=== PATIENT | male | born 1945 | race Caucasian/White ===

== ENCOUNTER 2018-06-14 10:50 | Outpatient (REF) | payer MEDICARE, BC, SELFPAY ==
[2018-06-14 12:43] LABS: Cholesterol 150 mg/dL (50-200); HDL Cholesterol 55 mg/dL (40-60); LDL CHOLESTEROL 74 mg/dL (<100); Triglyceride 149 mg/dL (30-150)
[2018-06-14 14:10] LABS: Hemoglobin A1C 7.6 % (4.5-6.2)
== END 2018-06-14 11:10 ==
LOC: NCHCN 10:50
PROVIDERS: PCP Nurse Practitioner Family; Visit Provider Nurse Practitioner
DX: I10 Essential (primary) hypertension (principal); E78.5 Hyperlipidemia, unspecified; R73.09 Other abnormal glucose
CPT/HCPCS: 80061; 83721; 83036

== ENCOUNTER → 2018-06-22 09:34 | Outpatient (BNVA) | payer MEDICARE, BC, SELFPAY | PROVIDERS: PCP Nurse Practitioner Family; Referring Provider Nurse Practitioner Family; Visit Provider Orthopaedic Surgery | DX: M75.91 Shoulder lesion, unspecified, right shoulder (principal) | CPT/HCPCS: 20610; 99213; 99214; J1040 ==

== ENCOUNTER → 2018-07-27 09:20 | Outpatient (BNVA) | payer MEDICARE, BC, SELFPAY | PROVIDERS: PCP Nurse Practitioner Family; Referring Provider Nurse Practitioner Family; Visit Provider Orthopaedic Surgery | DX: M75.82 Other shoulder lesions, left shoulder (principal) | CPT/HCPCS: 99213; 99241 ==

== ENCOUNTER 2018-08-02 09:35 | Outpatient (REF) | payer MEDICARE, BC, SELFPAY ==
[2018-08-02 13:15] LABS: COMMENT (LAB VIEW ONLY) 68.41 mg/dL; Microalb ug/mg Crea 36.4 ug/mg Cr
== END 2018-08-02 09:55 ==
LOC: NCHCN 09:35
PROVIDERS: PCP Nurse Practitioner Family; Visit Provider Nurse Practitioner
DX: E11.9 Type 2 diabetes mellitus without complications (principal)
CPT/HCPCS: 82043; 82570

== ENCOUNTER 2018-08-10 13:45 | Outpatient (REF) | payer MEDICARE, BC, SELFPAY ==
[2018-08-10 19:40] LABS: Amylase 35 U/L (25-115); Anion Gap 9.4 mmol/L (3-11); BUN 37 mg/dL (7-18); CO2 28.6 mmol/L (21.0-32.0); CREATININE 1.58 mg/dL (0.70-1.30); Calcium 9.5 mg/dL (8.5-10.1); Chloride 99 mmol/L (98-107); Estimated GFR 43.45 (mL/min/1.73m2); Glucose 174 mg/dL (70-100); Lipase 191 U/L (73-393); Potassium 3.9 mmol/L (3.5-5.1); Sodium 137 mmol/L (136-145)
== END 2018-08-10 14:05 ==
LOC: NCHCN 13:45
PROVIDERS: PCP Nurse Practitioner Family; Visit Provider Nurse Practitioner
DX: E11.65 Type 2 diabetes mellitus with hyperglycemia (principal); R11.2 Nausea with vomiting, unspecified; Z79.4 Long term (current) use of insulin
CPT/HCPCS: 80048; 83690; 82150; 84443; 84681

== ENCOUNTER 2018-09-05 12:59 | Outpatient (REF) | payer MEDICARE, BC, SELFPAY ==
[2018-09-06 17:13] LABS: C-Peptide 2.2 ng/mL (1.1 - 4.4)
== END 2018-09-05 13:19 ==
LOC: LBN 12:59
PROVIDERS: PCP Nurse Practitioner; Visit Provider Nurse Practitioner
DX: E11.9 Type 2 diabetes mellitus without complications (principal)
CPT/HCPCS: 84681

== ENCOUNTER 2019-02-16 09:50 | Outpatient (CLI) | payer MEDICARE, BC, SELFPAY | END 2019-02-16 10:10 | PROVIDERS: PCP Nurse Practitioner; Visit Provider Internal Medicine Cardiovascular Disease | DX: I48.0 Paroxysmal atrial fibrillation (principal); I10 Essential (primary) hypertension; E11.9 Type 2 diabetes mellitus without complications; Z79.4 Long term (current) use of insulin | CPT/HCPCS: 99213 ==

== ENCOUNTER → 2019-03-15 09:25 | Outpatient (BNVA) | payer MEDICARE, BC, SELFPAY | PROVIDERS: PCP Nurse Practitioner; Referring Provider Nurse Practitioner; Visit Provider Orthopaedic Surgery | DX: M75.81 Other shoulder lesions, right shoulder (principal); Z98.890 Other specified postprocedural states; E11.9 Type 2 diabetes mellitus without complications; Z79.4 Long term (current) use of insulin | CPT/HCPCS: 20610; 99213; J1040 ==

== ENCOUNTER 2019-04-25 14:08 | Outpatient (REF) | payer MEDICARE, BC, SELFPAY ==
[2019-04-25 15:19] LABS: Vitamin B12 600 pg/mL (193-986)
== END 2019-04-25 14:28 ==
LOC: NCHCN 14:08
PROVIDERS: PCP Nurse Practitioner; Visit Provider Nurse Practitioner
DX: E53.8 Deficiency of other specified B group vitamins (principal)
CPT/HCPCS: 82607

== ENCOUNTER 2020-01-01 16:14 | Outpatient (REF) | payer MEDICARE, BC, SELFPAY ==
[2020-01-01 16:31] LABS: Hemoglobin A1C 6.7 % (3.8-5.6)
[2020-01-01 16:39] LABS: ALT 47 U/L (16-63); AST 35 U/L (15-37); Albumin 3.8 g/dL (3.4-5.0); Alkaline Phosphatase 87 U/L (46-116); Anion Gap 8.9 mmol/L (3-11); BUN 26 mg/dL (7-18); Bilirubin, Total 0.6 mg/dL (0.2-1.0); CO2 28.1 mmol/L (21.0-32.0); CREATININE 1.37 mg/dL (0.70-1.30); Calcium 9.1 mg/dL (8.5-10.1); Calculated LDL 90 mg/dL (<100); Chloride 102 mmol/L (98-107); Cholesterol 176 mg/dL (<200); Estimated GFR 50.93 (mL/min/1.73m2); Glucose 176 mg/dL (74-106); HDL Cholesterol 61 mg/dL (40-60); Sodium 139 mmol/L (136-145); Total Protein 7.1 g/dL (6.4-8.2); Triglyceride 125 mg/dL (<150)
[2020-01-02 11:03] LABS: INR 2.5 (0.9-1.1)
== END 2020-01-01 16:34 ==
LOC: NCHCN 16:14
PROVIDERS: PCP Nurse Practitioner; Visit Provider Nurse Practitioner
DX: E11.9 Type 2 diabetes mellitus without complications (principal); I10 Essential (primary) hypertension; E78.5 Hyperlipidemia, unspecified; I48.91 Unspecified atrial fibrillation; Z79.01 Long term (current) use of anticoagulants
CPT/HCPCS: 80053; 80061; 83036; 85610

== ENCOUNTER → 2020-01-29 11:11 | Outpatient (BNVA) | payer MEDICARE, BC, SELFPAY | PROVIDERS: PCP Nurse Practitioner; Referring Provider Nurse Practitioner; Visit Provider Internal Medicine Cardiovascular Disease | DX: I48.0 Paroxysmal atrial fibrillation (principal); I10 Essential (primary) hypertension | CPT/HCPCS: 99213 ==

== ENCOUNTER 2020-08-28 15:14 | Outpatient (REF) | payer MEDICARE, BC, SELFPAY ==
[2020-08-28 14:43] LABS: COMMENT (LAB VIEW ONLY) 124.96 mg/dL; Microalb ug/mg Crea 9.6 ug/mg Cr
== END 2020-08-28 15:15 | disposition home or self-care (01) ==
LOC: NCHCN 15:14
PROVIDERS: PCP Nurse Practitioner; Visit Provider Internal Medicine
DX: E11.9 Type 2 diabetes mellitus without complications (principal)
CPT/HCPCS: 82043; 82570

== ENCOUNTER → 2021-01-31 12:25 | Outpatient (BNVA) | payer MEDICARE, BC, SELFPAY | PROVIDERS: PCP Nurse Practitioner; Referring Provider Nurse Practitioner; Visit Provider Internal Medicine Cardiovascular Disease | DX: I48.0 Paroxysmal atrial fibrillation (principal); I10 Essential (primary) hypertension; Z79.01 Long term (current) use of anticoagulants | CPT/HCPCS: 99213 ==

== ENCOUNTER 2021-02-17 11:35 | Outpatient (REF) | payer MEDICARE, BC, SELFPAY ==
[2021-02-17 13:58] LABS: ALT 69 U/L (16-63); AST 37 U/L (15-37); Albumin 3.7 g/dL (3.4-5.0); Alkaline Phosphatase 88 U/L (46-116); Anion Gap 8.4 mmol/L (3-11); BUN 26 mg/dL (7-18); Bilirubin, Total 0.5 mg/dL (0.2-1.0); CO2 27.6 mmol/L (21.0-32.0); CREATININE 1.3 mg/dL (0.70-1.30); Calculated LDL 60 mg/dL (<100); Chloride 103 mmol/L (98-107); Cholesterol 123 mg/dL (<200); Estimated GFR 53.96 (mL/min/1.73m2); Glucose 242 mg/dL (74-106); HDL Cholesterol 43 mg/dL (40-60); Potassium 4.3 mmol/L (3.5-5.1); Sodium 139 mmol/L (136-145); Total Protein 6.9 g/dL (6.4-8.2); Triglyceride 102 mg/dL (<150)
[2021-02-17 14:06] LABS: Hemoglobin A1C 7.8 % (<5.7)
== END 2021-02-17 11:36 | disposition home or self-care (01) ==
LOC: NCHCN 11:35
PROVIDERS: PCP Nurse Practitioner; Visit Provider Nurse Practitioner
DX: E11.9 Type 2 diabetes mellitus without complications (principal); I10 Essential (primary) hypertension; E78.5 Hyperlipidemia, unspecified
CPT/HCPCS: 80053; 80061; 83036

== ENCOUNTER 2021-05-15 01:56 | Outpatient (CLI) | payer MEDICARE, BC, SELFPAY ==
--- NOTE | 2021-05-15 | DI.CT_ITS ---
Exam(s) CT LOWER EXTREMITY LT WO EXAM: CT LOWER EXTREMITY LT WO CLINICAL HISTORY: PAIN IN TALAR/NAVICULAR JNT,ANT ANKLE. TECHNIQUE: Imaging Protocol: Axial computed tomography images with coronal and sagittal reformatted images were created and reviewed. CONTRAST MATERIAL: Intravenous: None COMPARISON: No prior relevant radiologic exams were available for comparison FINDINGS: OSSEOUS: There are no fractures. No significant osseous lesions. Talar dome unremarkable. No osseous tarsal coalition evident. ANKLE JOINT: The tibiotalar joint appears unremarkable. Talar dome appears unremarkable. Tibial susana fond appears unremarkable. No degenerative subarticular cysts. No evidence of osteochondral defect. No loose intra-articular body. No obvious joint effusion. No anterior bony excrescence (to sugges t obvious impingement at this level). There is no evidence of os trigonum nor prominent Stieda process of the talus. SINUS TARSI: Normal fat therein. No evidence of sinus tarsi ganglion cyst. SUBTALAR JOINT: Unremarkable. No obvious degenerative changes sustentacular talus appears unremarkab le. There is no evidence of osseous tarsal coalition. CALCANEOCUBOID JOINT: No significant findings TARSOMETATARSAL JOINTS: No significant findings IMPRESSION: 1. 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 2. No other significant osseous findings. RADIATION DOSE DELIVERED: 287.9mGy.cm Total DLP DATA REPOSITORY: All CT scans at this facility are submitted to the National Radiology Data Registry (NRDR) Dose Index Registry (DIR) with the [employer] (A[employer]). RADIATION OPTIMIZATION: All CT scans at this facility use at least one of these dose optimization te chniques: automated exposure control; mA and/or kV adjustment per patient size (includes targeted exa ms where dose is matched to clinical indication); or iterative reconstruction.
== END 2021-05-15 02:16 ==
PROVIDERS: PCP Nurse Practitioner; Visit Provider Podiatrist
DX: M19.072 Primary osteoarthritis, left ankle and foot (principal)
CPT/HCPCS: 73700

== ENCOUNTER 2021-10-03 17:39 | Outpatient (REF) | payer MEDICARE, BC, SELFPAY ==
[2021-10-03 15:05] LABS: INR 2.3 (0.9-1.1); Prothrombin Time 22.2 sec (9.3-11.0)
== END 2021-10-03 17:40 | disposition home or self-care (01) ==
LOC: NCHCN 17:39
PROVIDERS: PCP Nurse Practitioner; Visit Provider Nurse Practitioner Family
DX: Z76.89 Persons encountering health services in other specified circumstances (principal); I48.0 Paroxysmal atrial fibrillation
CPT/HCPCS: 85610

== ENCOUNTER 2022-02-02 08:30 | Outpatient (CLI) | payer MEDICARE, BC, SELFPAY ==
--- NOTE | 2022-02-02 08:30 | RT.EKG_ITS ---
APPROVED REPORT Exam: Resting ECG Reason for Exam: PAF Patient Location: O HR:71 bpm ECG Measurements Heart Rate 71 AXIS [place] 208 P 63 QRSd 111 QRS 70 QT 370 T 25 QTc 403 Conclusion Sinus rhythm...normal P axis, V-rate 50- 99 Normal Electrocardiogram
== END 2022-02-02 08:31 | disposition home or self-care (01) ==
LOC: DI.CARD 08:31
PROVIDERS: PCP Nurse Practitioner; Visit Provider Internal Medicine Cardiovascular Disease
DX: I48.0 Paroxysmal atrial fibrillation (principal)
CPT/HCPCS: 93010

== ENCOUNTER → 2022-02-02 14:00 | Outpatient (BNVA) | payer MEDICARE, BC, SELFPAY | PROVIDERS: PCP Nurse Practitioner; Visit Provider Internal Medicine Cardiovascular Disease | DX: I48.0 Paroxysmal atrial fibrillation (principal); I10 Essential (primary) hypertension | CPT/HCPCS: 93005; 99213 ==

== ENCOUNTER 2022-02-16 16:58 | Outpatient (REF) | payer MEDICARE, BC, SELFPAY ==
[2022-02-16 17:19] LABS: COMMENT (LAB VIEW ONLY) 167.34 mg/dL; PROTEIN 19.8 mg/dL; Prot/Crea Ur Ratio 0.11
[2022-02-16 17:23] LABS: COMMENT (LAB VIEW ONLY) 168.22 mg/dL; Microalb ug/mg Crea 5.9 ug/mg Cr
== END 2022-02-16 16:59 | disposition home or self-care (01) ==
LOC: NCHCN 16:58
PROVIDERS: PCP Nurse Practitioner; Visit Provider Nurse Practitioner Family
DX: I12.9 Hypertensive chronic kidney disease with stage 1 through stage 4 chronic kidney disease, or unspecified chronic kidney disease (principal); N18.9 Chronic kidney disease, unspecified; E11.22 Type 2 diabetes mellitus with diabetic chronic kidney disease; I48.91 Unspecified atrial fibrillation; E53.8 Deficiency of other specified B group vitamins; E55.9 Vitamin D deficiency, unspecified; E78.5 Hyperlipidemia, unspecified
CPT/HCPCS: 82043; 82565; 82570; 84156

== ENCOUNTER 2022-03-18 15:06 | Outpatient (REF) | payer MEDICARE, BC, SELFPAY ==
[2022-03-18 16:10] LABS: HCT 42.9 % (40.0-50.0); HGB 15.2 g/dL (13.5-17.5); MCH 34.2 pg (27.0-33.0); MCHC 35.4 % (32.0-36.0); MCV 96 fL (80-95); MPV 11.3 fL (8.0-11.0); Platelet Count 235 10^3/uL (130-400); RBC 4.45 10^6/uL (4.36-5.78); RDW-SD 42.7 fL; WBC 9.53 10^3/uL (4.4-10.8)
[2022-03-18 16:31] LABS: INR 2.8 (0.9-1.1); Prothrombin Time 26.3 sec (9.3-11.0)
[2022-03-18 17:23] LABS: ALT 55 U/L (16-63); AST 39 U/L (15-37); Albumin 3.7 g/dL (3.4-5.0); Alkaline Phosphatase 96 U/L (46-116); Anion Gap 12.4 mmol/L (3-11); BUN 22 mg/dL (7-18); Bilirubin, Total 0.6 mg/dL (0.2-1.0); CO2 26.6 mmol/L (21.0-32.0); CREATININE 1.2 mg/dL (0.70-1.30); Calcium 9.3 mg/dL (8.5-10.1); Chloride 100 mmol/L (98-107); Estimated GFR 59.02 (mL/min/1.73m2); Glucose 134 mg/dL (74-106); Potassium 3.8 mmol/L (3.5-5.1); Sodium 139 mmol/L (136-145); Total Protein 7.3 g/dL (6.4-8.2); Vitamin B12 586 pg/mL (193-986)
[2022-03-19 05:28] LABS: Vitamin D 25 Total 33.2 ng/mL (30-100)
== END 2022-03-18 15:07 | disposition home or self-care (01) ==
LOC: NCHCN 15:06
PROVIDERS: PCP Nurse Practitioner; Visit Provider Nurse Practitioner Family
DX: E11.9 Type 2 diabetes mellitus without complications (principal); N18.30 Chronic kidney disease, stage 3 unspecified; E53.8 Deficiency of other specified B group vitamins; E55.9 Vitamin D deficiency, unspecified; E78.5 Hyperlipidemia, unspecified; I10 Essential (primary) hypertension; I48.91 Unspecified atrial fibrillation; Z79.01 Long term (current) use of anticoagulants
CPT/HCPCS: 80053; 82306; 85027; 82607; 85610

== ENCOUNTER 2022-09-18 10:29 | Outpatient (REF) | payer MEDICARE, BC, SELFPAY ==
--- NOTE | 2022-09-18 09:30 | LIPBX_PTH ---
PATIENT: Allan Lucas LOC: [facility] U#:[id number] AGE/SX: 76/M ROOM: RE09/18/[address]: POOJA Chávez : 1945 BED: DIS: 09/18/2022 SPEC #: [id number] RECD: 09/21/22 13:00 STATUS: KRYS RETroy #: [id number] NOEMI: 09/18/22 09:[address]: Evaristo Grover DEPT: Surgical Specimen RECD BY: Tanja Mark ENTERED: 09/21/22 13:01 SP TYPE: LIPBX OTHR DR: Sanjuana Sams Tissues: 1 - LIP BIOPSY/RESECTION Procedures: GROSS AND MICRO LEVEL 4 SPECIAL STAIN 1 Comments: [id number]
== END 2022-09-18 10:30 | disposition home or self-care (01) ==
LOC: LBN 10:29
PROVIDERS: PCP Nurse Practitioner; Visit Provider Physician Assistant
DX: D18.01 Hemangioma of skin and subcutaneous tissue (principal)
CPT/HCPCS: 88305; 88312

== ENCOUNTER → 2023-02-02 10:16 | Outpatient (BNVA) | payer MEDICARE, BC, SELFPAY | PROVIDERS: PCP Nurse Practitioner; Visit Provider Internal Medicine Cardiovascular Disease | DX: Z79.01 Long term (current) use of anticoagulants (principal); I48.0 Paroxysmal atrial fibrillation; I10 Essential (primary) hypertension | CPT/HCPCS: 99214 ==

== ENCOUNTER 2023-02-17 02:39 | Outpatient (CLI) | payer MEDICARE, BC, SELFPAY ==
--- NOTE | 2023-02-17 | DI.RAD_ITS ---
Exam(s) XR HAND LT COMPLETE EXAM: XR HAND LT COMPLETE CLINICAL HISTORY: ARTHRITIS, M12.849,PERSIST PAIN,STRAIN,? ORTHO INJURY VS ARTHRITIS. TECHNIQUE: 2D digital imaging was performed of the left hand. Three views were obtained. AP, later al and oblique views were obtained. COMPARISON: No exams were available for comparison FINDINGS: BONES: No acute fracture is present. No bony destructive lesion is seen. JOINTS: No dislocation present. Mtah-ge-bpyymrfh degenerative changes are seen in the left hand sachin cterized by joint space narrowing and osteophytes. The findings are most marked at the interphalange al joints of the fingers. SOFT TISSUE: Extensive vascular calcification is present. IMPRESSION: 1. No acute fracture or dislocation. 2. Wdio-vm-xyryfoni degenerative changes of the hand. 3. Atherosclerosis. DATA REPOSITORY: RADIATION DOSE DELIVERED:
== END 2023-02-17 02:59 ==
LOC: DI 02:39
PROVIDERS: PCP Nurse Practitioner Family; Visit Provider Nurse Practitioner Family
DX: M19.042 Primary osteoarthritis, left hand
CPT/HCPCS: 73130

== ENCOUNTER 2023-06-15 18:24 | Outpatient (REF) | payer MEDICARE, BC, SELFPAY ==
[2023-06-15 17:03] LABS: HCT 43.3 % (40.0-50.0); HGB 14.7 g/dL (13.5-17.5); MCH 33.9 pg (27.0-33.0); MCHC 33.9 % (32.0-36.0); MCV 100 fL (80-95); MPV 11.3 fL (8.0-11.0); Platelet Count 243 10^3/uL (130-400); RBC 4.34 10^6/uL (4.36-5.78); RDW 12.1 % (11.8-14.1); RDW-SD 44.6 fL; WBC 9.28 10^3/uL (4.4-10.8)
[2023-06-15 17:34] LABS: Hemoglobin A1C 7.3 % (<5.7); Vitamin D 25 Total 26.6 ng/mL (30-100)
[2023-06-15 17:37] LABS: ALT 46 U/L (16-63); AST 31 U/L (15-37); Albumin 3.8 g/dL (3.4-5.0); Alkaline Phosphatase 109 U/L (46-116); Anion Gap 4.6 mmol/L (3-11); BUN 38 mg/dL (7-18); Bilirubin, Total 0.4 mg/dL (0.2-1.0); CO2 28.4 mmol/L (21.0-32.0); CREATININE 1.7 mg/dL (0.70-1.30); Calcium 9.5 mg/dL (8.5-10.1); Calculated LDL 83 mg/dL (<100); Chloride 103 mmol/L (98-107); Cholesterol 176 mg/dL (<200); Estimated GFR 41.26 (mL/min/1.73m2); Glucose 162 mg/dL (74-106); HDL Cholesterol 67 mg/dL (40-60); Potassium 4.7 mmol/L (3.5-5.1); Sodium 136 mmol/L (136-145); Total Protein 7.7 g/dL (6.4-8.2); Triglyceride 132 mg/dL (<150); Vitamin B12 622 pg/mL (193-986)
== END 2023-06-15 18:25 | disposition home or self-care (01) ==
LOC: NCHCN 18:24
PROVIDERS: PCP Nurse Practitioner Family; Visit Provider Nurse Practitioner Family
DX: I10 Essential (primary) hypertension (principal); E11.9 Type 2 diabetes mellitus without complications; E55.9 Vitamin D deficiency, unspecified
CPT/HCPCS: 80053; 80061; 82306; 85027; 82607; 83036

== ENCOUNTER 2023-11-09 07:52 | Outpatient (CLI) | payer MEDICARE, BC, SELFPAY ==
--- NOTE | 2023-11-09 07:45 | RT.EKG_ITS ---
APPROVED REPORT Exam: Resting ECG Reason for Exam: PAF Patient Location: O HR:69 bpm ECG Measurements Heart Rate 69 AXIS VT 225 P 78 QRSd 110 QRS 66 QT 384 T 32 QTc 412 Conclusion Sinus rhythm...normal P axis, V-rate 50- 99 Prolonged VT interval...VT >220, V-rate 50- 90
== END 2023-11-09 07:53 | disposition home or self-care (01) ==
LOC: DI.CARD 07:53
PROVIDERS: PCP Nurse Practitioner Family; Visit Provider Internal Medicine Cardiovascular Disease
DX: I48.0 Paroxysmal atrial fibrillation (principal)
CPT/HCPCS: 93010

== ENCOUNTER → 2023-11-09 10:23 | Outpatient (BNVA) | payer MEDICARE, BC, SELFPAY | PROVIDERS: PCP Nurse Practitioner Family; Visit Provider Internal Medicine Cardiovascular Disease | DX: I48.0 Paroxysmal atrial fibrillation (principal); I10 Essential (primary) hypertension | CPT/HCPCS: 93005; 99213 ==

== ENCOUNTER 2023-12-12 12:25 | Emergency (ER) | payer MEDICARE, BC, SELFPAY ==
[2023-12-12 12:30] VITALS: BP 186/51; PULSE 73; RESP 18; TEMP 37; O2SAT 98
--- NOTE | 2023-12-12 12:38 | ED.GENADUL_ITS ---
Discharge Plan Disposition Patient Disposition: Home Condition: Stable Discharge Details Clinical Impression: Cellulitis of forearm, right Primary Care Provider: AMADOR RAMIREZ ED Provider: Orestes Morrison Home Meds and New Rx's Prescriptions: New amoxicillin-pot clavulanate 875-125 mg tablet 1 tab PO BID Qty: 14 0RF Continued (DME) blood-glucose meter Kit See Rx Instructions .ROUTE .MEDSUPPLY Qty: 1 Rx Instructions: As directed amiodarone 200 mg tablet 200 mg PO DAILY Qty: 90 3RF enalapril maleate 10 mg tablet 10 mg PO DAILY insulin degludec [Tresiba FlexTouch U-100] 100 unit/mL (3 mL) insulin pen 20 unit subcut QHS Victoza 3-Arron 0.6 mg/0.1 mL (18 mg/3 mL) pen injector 0.6 mg subcut DAILY cyanocobalamin (vitamin B-12) 1,000 MCG/1 ML solution 1,000 mcg IJ ONCE Qty: 1 Patient Comments: 3.7.18 pt unsure of dosage, Q 3 months.HE sennosides [senna] 8.6 MG tablet 8.6 mg PO DAILY atorvastatin [Lipitor] 40 MG tablet 40 mg PO QPM chlorthalidone 25 MG tablet 25 mg PO DAILY warfarin [Coumadin] 5 MG tablet 5 mg PO DAILY metoprolol tartrate 50 MG tablet 50 mg PO BID Discharge Instructions Additional Instructions: Take the antibiotic as prescribed If not improving this week follow-up with your primary care provider If you feel more ill, have severe worsening pain or high fevers return to the emergency department for reevaluation HPI General Mode of arrival: ambulatory . Date/Time Provider Initiated Documentation: 12/12/23 12:27 . Limitations to Documentation: no limitations . Information obtained by: patient . History of Present Illness 78 year old M presents to the emergency department with the chief complaint of Right arm redness, described as mild, Quality is described as aching, and is localized to the right and upper extremity. Patient reports no radiation. Patient started experiencing this day(s) (1) and it has been constant. No relieving factors improve symptom(s), No exacerbating factors reported . Patient notes denies fever/chills. Patient did receive the following tr eatments prior to arrival, none Related Data Home Medications Medication Instructions Recorded Confirmed atorvastatin 40 mg tablet (Lipitor) 40 mg PO QPM 09/02/16 12/12/23 chlorthalidone 25 mg tablet 25 mg PO DAILY 09/02/16 12/12/23 metoprolol tartrate 50 mg tablet 50 mg PO BID 09/02/16 12/12/23 warfarin 5 mg tablet (Coumadin) 5 mg PO DAILY 09/02/16 12/12/23 cyanocobalamin (vitamin B-12) 1,000 mcg IJ ONCE #1 vial 09/29/17 12/12/23 1,000 mcg/mL injection solution sennosides 8.6 mg tablet (senna) 8.6 mg PO DAILY 11/10/17 12/12/23 blood-glucose meter #1 ea 02/16/19 12/12/23 enalapril maleate 10 mg tablet 10 mg PO DAILY 01/29/20 12/12/23 insulin degludec 100 unit/mL (3 20 unit subcut QHS 02/02/23 12/12/23 mL) subcutaneous pen (JuiceBoxJunglesiba FlexTouch U-100 insulin) liraglutide 0.6 mg/0.1 mL (18 mg/3 0.6 mg subcut DAILY 02/02/23 12/12/23 mL) subcutaneous pen injector (Victoza 3-Arron) amiodarone 200 mg tablet 200 mg PO DAILY #90 tabs 11/09/23 12/12/23 amoxicillin 875 mg-potassium 1 tab PO BID #14 tabs 12/12/23 clavulanate 125 mg tablet Previous Rx's Medication Instructions Recorded amiodarone 200 mg tablet 200 mg PO DAILY #90 tabs 11/09/23 amoxicillin 875 mg-potassium 1 tab PO BID #14 tabs 12/12/23 clavulanate 125 mg tablet Allergies Allergy/AdvReac Type Severity Reaction Status Date / Time codeine AdvReac Intermediate Other (See Verified 12/12/23 12:31 Comment) General Stated Complaint: AnimalBite MEEK: 3 Review of Systems All systems reviewed & are unremarkable except as noted in HPI and below Constitutional Constitutional: Denies chills, Denies fever(s) and Denies weakness Cardiovascular Cardiovascular: Denies chest pain and Denies dyspnea Respiratory Respiratory: Denies cough and Denies dyspnea Gastrointestinal Gastrointestinal: Denies abdominal pain, Denies nausea and Denies vomiting Musculoskeletal Musculoskeletal: Denies joint swelling Integumentary/Breasts Skin/Breast: Reports rash Neurologic Neurologic: Denies weakness Exam Const General: no acute distress Orientation: alert HENMT Head: normal to inspection Ears: external ears normal General nose exam: external nose normal Mouth: moist mucous membranes Eyes General: appearance normal, both eyes and all related structures Neck Neck: normal visual inspection Resp Effort & Inspection: normal respiratory effort and able to speak in complete sentences Cardio Rate: regular rate Neuro General: patient alert and patient oriented x3 Extrem Right upper extremity: full ROM and normal capillary refill; no edema Psych Mental Status: mental status grossly normal Course Vital Signs Vital signs: Vital Signs Temperature 37.0 C 12/12/23 12:30 Pulse 73 12/12/23 12:30 Respiratory Rate 18 12/12/23 12:30 Blood Pressure 186/51 H 12/12/23 12:30 Pulse Oximetry 98 12/12/23 12:30 Temperature 37.0 C 12/12/23 12:30 Temperature Source Temporal Artery Scan 12/12/23 12:30 Pulse 73 12/12/23 12:30 Respiratory Rate 18 12/12/23 12:30 Blood Pressure 186/51 H 12/12/23 12:30 Blood Pressure Position Sitting 12/12/23 12:30 Pulse Oximetry 98 12/12/23 12:30 Oxygen Delivery Method Room Air 12/12/23 12:30 Oxygen Flow Rate 0 12/12/23 12:30 Pain Level 3 12/12/23 12:30 Medical Decision Making 78-year-old male with a history of A-fib, hypertension, last tetanus shot was in 2019, comes in after his cat bit him on his right arm yesterday and now has redness near the area where he was bit. He states he was bit on the distal right forearm, did not fall or sustain any other injuries. States his cat is up-to-date on rabies vaccines. He is alert and oriented x 4 on arrival and appears well speaking in full sentences. He has several small puncture wounds on the anterior and posterior distal forearm, on the anterior aspect of the forearm there is mild erythema approximately 3 x 4 cm without fluctuance or severe tenderness. No erythema of the wrist with full range of motion of the wrist no pain. Intact sensation in the fingers and normal pulses. Suspect cellulitis, no findings on exam or history to suggest sepsis versus septic joint versus necrotizing fasciitis. Will start him on Augmentin, advised to follow- up with his PCP especially if not improving and return precautions given Differential Diagnosis Differential Diagnosis: Cellulitis, puncture wound Quality:SDOH Health Related Social Needs: No Data to Display PFSH All Active Problems (Updated 12/12/23 @ 12:42 by Orestes Morrison MD) Cellulitis of forearm, right (Acute) Right rotator cuff tendonitis (Chronic) Injected: 03/15/2019; 06/22/2018 Hypertension (Chronic) Paroxysmal atrial fibrillation (Acute) Tinnitus (Acute 09/28/16) Sensorineural hearing loss, bilateral (Acute 09/28/16) Abnormal auditory perception (Acute 09/28/16) Social History Smoking/Tobacco Use Status: Former Tobacco Use Quit Date: 07/26/95 Pack-years: 30 Tobacco: How many years used: 30 Smoking risk assessment performed?: Yes Alcohol Intake: current Alcohol Intake frequency: 3 or more drinks per day Drug use: Never Do you feel safe in your relationship?: Yes
[2023-12-12 12:49] VITALS: BP 186/51; PULSE 73; RESP 18; TEMP 37; O2SAT 98
[2023-12-12] MEDS: Amoxicillin 875/Clav. 125 TAB PO (12:50)
== END 2023-12-12 12:40 | disposition home or self-care (01) ==
LOC: ER 13:44
PROVIDERS: Emergency Provider Emergency Medicine; PCP Nurse Practitioner Family
DX: L03.113 Cellulitis of right upper limb (principal); E11.9 Type 2 diabetes mellitus without complications; I10 Essential (primary) hypertension; I48.0 Paroxysmal atrial fibrillation; Z79.4 Long term (current) use of insulin; Z79.84 Long term (current) use of oral hypoglycemic drugs; Z79.01 Long term (current) use of anticoagulants; Z87.891 Personal history of nicotine dependence; W55.01XA Bitten by cat, initial encounter; Y93.K3 Activity, grooming and shearing an animal; Y92.018 Other place in single-family (private) house as the place of occurrence of the external cause
CPT/HCPCS: 99283

== ENCOUNTER → 2024-05-11 10:28 | Outpatient (BNVA) | payer MEDICARE, BC, SELFPAY | PROVIDERS: PCP Nurse Practitioner Family; Visit Provider Internal Medicine Cardiovascular Disease | DX: I48.0 Paroxysmal atrial fibrillation (principal); I10 Essential (primary) hypertension | CPT/HCPCS: 99213 ==

== ENCOUNTER 2024-05-31 08:58 | Outpatient (REF) | payer MEDICARE, BC, SELFPAY ==
[2024-05-31 14:59] LABS: HCT 41.1 % (40.0-50.0); HGB 14.1 g/dL (13.5-17.5); MCH 34.7 pg (27.0-33.0); MCHC 34.3 % (32.0-36.0); MCV 101 fL (80-95); MPV 11.6 fL (8.0-11.0); Platelet Count 220 10^3/uL (130-400); RBC 4.06 10^6/uL (4.36-5.78); WBC 7.46 10^3/uL (4.4-10.8)
[2024-05-31 15:13] LABS: ALT 35 U/L (16-63); AST 31 U/L (15-37); Albumin 3.5 g/dL (3.4-5.0); Alkaline Phosphatase 98 U/L (46-116); Anion Gap 6.3 mmol/L (3-11); BUN 38 mg/dL (7-18); Bilirubin, Total 0.55 mg/dL (0.2-1.0); CO2 27.7 mmol/L (21.0-32.0); CREATININE 1.7 mg/dL (0.70-1.30); Calcium 9.6 mg/dL (8.5-10.1); Calculated LDL 85 mg/dL (<100); Chloride 102 mmol/L (98-107); Cholesterol 174 mg/dL (<200); Estimated GFR 41.01 (mL/min/1.73m2); Glucose 312 mg/dL (74-106); HDL Cholesterol 65 mg/dL (40-60); Potassium 4.8 mmol/L (3.5-5.1); Sodium 136 mmol/L (136-145); Total Protein 7.5 g/dL (6.4-8.2); Triglyceride 123 mg/dL (<150)
[2024-05-31 15:56] LABS: Hemoglobin A1C 7.8 % (<5.7)
== END 2024-05-31 08:59 | disposition home or self-care (01) ==
LOC: NCHCN 08:58
PROVIDERS: PCP Nurse Practitioner Family; Visit Provider Nurse Practitioner Family
DX: E11.9 Type 2 diabetes mellitus without complications (principal)
CPT/HCPCS: 80053; 80061; 85027; 83036

== ENCOUNTER 2024-10-07 09:51 | Outpatient (CLI) | payer MEDICARE, BC, SELFPAY ==
--- NOTE | 2024-10-07 10:30 | DI.RAD_ITS ---
Exam(s) XR CHEST 2V PA LATERAL EXAM: XR CHEST 2V PA LATERAL CLINICAL HISTORY: cough and fever TECHNIQUE: 2D digital imaging was performed of the chest. Two images were obtained. PA and lateral views were obtained. COMPARISON: CR CHEST 2 VIEWS PA,LAT from 09/02/2016 CR LEFT SHOULDER COMPLETE from 09/29/2017 CR RIGHT SHOULDER COMPLETE from 09/29/2017 FINDINGS: MEDIASTINUM: Normal. HEART: Normal. PULMONARY VASCULATURE: Normal. LUNGS: There is again seen scarring in the right upper lobe. No new focal consolidating infiltrates are present. There is scarring or atelectasis in the left lung base. No focal consolidating infiltr ates are seen. The lungs appear hyperinflated suggesting underlying COPD. PLEURAL SPACE: No pleural effusion or pneumothorax. BONE:Within normal limits for the patient's age. OTHER FINDINGS:There are surgical clips seen in the region of the gastroesophageal junction. IMPRESSION: 1. No definite acute pulmonary findings. 2. Stable chronic findings seen in the lung apices particularly on the right. 3. Follow-up as clinically appropriate. This may include a CT scan of the chest. DATA REPOSITORY: RADIATION DOSE DELIVERED:
--- NOTE | 2024-10-07 10:54 | DI.VRAD_ITS ---
PROCEDURE INFORMATION: Exam: XR Chest Exam date and time: 10/07/2024 10:39 AM Age: 78 years old Clinical indication: Cough and fever TECHNIQUE: Imaging protocol: Radiologic exam of the chest. Views: 2 views. COMPARISON: No relevant prior studies available. FINDINGS: Lungs: Ill-defined biapical opacities. Streaky bibasilar opacities. Pleural spaces: No large pleural effusion seen. Heart/Mediastinum: No cardiomegaly. Bones/joints: No acute abnormality. IMPRESSION: Streaky bibasilar opacities, likely atelectasis/scarring. Biapical opacities most likely reflect scarring and/or pleural pathology. Clinical correlation and comparison with prior studies advised. Dictated and Authenticated by: Yodit Schaffer MD. Orderin Tiffanie Julia DALE
== END 2024-10-07 10:11 ==
LOC: DI 03-22 09:52
PROVIDERS: PCP Nurse Practitioner Family; Visit Provider Nurse Practitioner Family
DX: R05.9 Cough, unspecified (principal); R50.9 Fever, unspecified
CPT/HCPCS: 71046

== ENCOUNTER 2025-03-14 10:25 | Outpatient (REF) | payer MEDICARE, BC, SELFPAY ==
[2025-03-14 16:16] LABS: COMMENT (LAB VIEW ONLY) 132.58 mg/dL; Microalb ug/mg Crea 44.0 ug/mg Cr
== END 2025-03-14 10:26 | disposition home or self-care (01) ==
LOC: NCHCN 10:25
PROVIDERS: PCP Nurse Practitioner Family; Visit Provider Nurse Practitioner Family
DX: E11.9 Type 2 diabetes mellitus without complications (principal)
CPT/HCPCS: 82043; 82570

== ENCOUNTER 2025-05-10 08:54 | Outpatient (CLI) | payer MEDICARE, BC, SELFPAY ==
--- NOTE | 2025-05-10 08:45 | RT.EKG_ITS ---
APPROVED REPORT Exam: Resting ECG Reason for Exam: PAF Patient Location: O HR:59 bpm ECG Measurements Heart Rate 59 AXIS CO 219 P 75 QRSd 113 QRS 65 QT 408 T 36 QTc 405 Conclusion Sinus rhythm...normal P axis, V-rate 50- 99 Borderline prolonged CO interval...CO >212, V-rate 50- 90
== END 2025-05-10 08:55 | disposition home or self-care (01) ==
LOC: DI.CARD 08:55
PROVIDERS: PCP Nurse Practitioner Family; Visit Provider Internal Medicine Cardiovascular Disease
DX: I48.0 Paroxysmal atrial fibrillation (principal)
CPT/HCPCS: 93010

== ENCOUNTER → 2025-05-10 10:36 | Outpatient (BNVA) | payer MEDICARE, BC, SELFPAY | PROVIDERS: PCP Nurse Practitioner Family; Referring Provider Nurse Practitioner Family; Visit Provider Internal Medicine Cardiovascular Disease | DX: I48.0 Paroxysmal atrial fibrillation (principal); I10 Essential (primary) hypertension; Z79.01 Long term (current) use of anticoagulants | CPT/HCPCS: 99213; 93005 ==

== ENCOUNTER 2025-06-14 10:38 | Outpatient (REF) | payer MEDICARE, BC, SELFPAY ==
[2025-06-14 15:21] LABS: Abs Immature Grans 0.02 10^3/uL (0.0-0.06); HCT 41.0 % (40.0-50.0); HGB 13.9 g/dL (13.5-17.5); Immature Grans % 0.2 %; MCH 34.8 pg (27.0-33.0); MCHC 33.9 % (32.0-36.0); MCV 103 fL (80-95); MPV 11.2 fL (8.0-11.0); Platelet Count 231 10^3/uL (130-400); RBC 4.00 10^6/uL (4.36-5.78); RDW 11.9 % (11.8-14.1); RDW-SD 45.1 fL; WBC 8.46 10^3/uL (4.4-10.8)
[2025-06-14 15:57] LABS: Vitamin B12 541 pg/mL (211-911)
[2025-06-14 16:21] LABS: Hemoglobin A1C 7.1 % (<5.7)
[2025-06-14 16:25] LABS: ALT 34 U/L (10-49); AST 34 U/L (<34); Albumin 3.9 g/dL (3.4-5.0); Alkaline Phosphatase 88 U/L (46-116); Anion Gap 8.7 mmol/L (3-11); BUN 39 mg/dL (9-23); Bilirubin, Total 0.60 mg/dL (0.2-1.2); CO2 27.3 mmol/L (20.0-31.0); Calcium 9.6 mg/dL (8.3-10.6); Chloride 103 mmol/L (98-107); Cholesterol 176 mg/dL (<200); Glucose 182 mg/dL (74-106); HDL Cholesterol 61 mg/dL (>40); Potassium 5.3 mmol/L (3.5-5.1); Sodium 139 mmol/L (136-145); Total Protein 6.8 g/dL (5.7-8.2)
== END 2025-06-14 10:39 | disposition home or self-care (01) ==
LOC: NCHCN 10:38
PROVIDERS: PCP Nurse Practitioner Family; Visit Provider Nurse Practitioner Family
DX: N18.30 Chronic kidney disease, stage 3 unspecified (principal); E53.9 Vitamin B deficiency, unspecified; E11.9 Type 2 diabetes mellitus without complications; E78.5 Hyperlipidemia, unspecified
CPT/HCPCS: 80053; 80061; 82607; 83036; 85025